=== PATIENT | female | born 1980 ===

== ENCOUNTER 2023-01-05 13:22 | Inpatient (IN) | payer MEDICAID ==
[~2023-01-05] VITALS: Ht 167.6 cm; Wt 86.8 kg
[2023-01-05] VITALS (318 sets, daily range): BP systolic 135; BP diastolic 105; PULSE 102; TEMP 97.9–101.2; O2SAT 91–100
--- NOTE | 2023-01-05 17:43 | NUR ---
REPLACED PT TUBE SHETH WITH ANCHORFAST TUBE SHETH UPON ARRIVAL IT WAS NOTED THAT PATIENT HAD BEEN BITING TOUNGE AND IT WAS BLEEDING. USED BITE BLOCK ON ANCHORFAST TO TRY TO PREVENT FURTHER BITING.
[2023-01-05 18:01] LABS: ARTERIAL BLD GAS O2 SATURATION 98.5 % (92-100); ARTERIAL BLD GAS TCO2 CT 25.6; ARTERIAL BLOOD GAS BASE EXCESS -1.4 (-2-2); ARTERIAL BLOOD GAS HCO3 24.2 meq/L (22-26); ARTERIAL BLOOD GAS PCO2 44.2 mmHg (35-45); ARTERIAL BLOOD GAS pH 7.36 (7.35-7.45)
[2023-01-05 18:02] LABS: ARTERIAL BLOOD GAS PO2 172.4 mmHg (80-100)
[2023-01-05 19:02] LABS: HEMATOCRIT 39.2 % (37.0-47.0); HEMOGLOBIN 13.3 g/dl (12.5-16.0); MEAN CELL VOLUME 90 fl (80.0-100.0); MEAN CORPUSCULAR HEMOGLOBIN 31 pg (27-31); MEAN CORPUSCULAR HGB CONC 34 g/dl (33.0-37.0); MEAN PLATELET VOLUME 9.4 fl (7.4-10.4); PLATELET COUNT 258 K/mm3 (130-400); RED BLOOD COUNT 4.36 M/mm3 (4.10-5.30); REDCELL DISTRIBUTION WIDTH-CV 13.5 % (11.5-14.5)
[2023-01-05 19:05] LABS: TRICYCLIC ANTIDEPRESS URINE NEGATIVE
[2023-01-05 19:11] LABS: PROTHROMBIN TIME 11.7 SECONDS (9.7-12.8)
[2023-01-05 19:12] LABS: ALBUMIN 3.3 gm/dL (3.5-5.0); BILIRUBIN,TOTAL 0.6 mg/dL (0.2-1.2); CREATININE, serum 1.13 mg/dL (0.57-1.11); POTASSIUM 4.7 mmol/L (3.5-4.5); TOTAL PROTEIN 6.7 gm/dL (6.2-8.1)
[2023-01-05 19:14] LABS: PARTIAL THROMBOPLASTIN TIME 27.5 SECONDS (26.0-37.0)
[2023-01-05 19:19] LABS: TROPONIN-I 0.868 ng/mL (0.00-0.033)
[2023-01-05] MEDS ORDERED: MERIBIN5 MG PO (19:25)
[2023-01-05] MEDS ORDERED: CALCIUM 600600 MG PO (19:25)
[2023-01-05] MEDS ORDERED: PRINIVIL40 MG PO (19:26)
[2023-01-05] MEDS ORDERED: INSULIN AS100 UNIT/3 SQ (19:26)
[2023-01-05] MEDS ORDERED: ESTRACE 1MG1 MG/TAB PO (19:27)
[2023-01-05] MEDS ORDERED: PRILOSEC 20MG20 MG PO (19:27)
[2023-01-05] MEDS ORDERED: CRESTOR5 MG PO (19:27)
[2023-01-05] MEDS ORDERED: LEVEMIR FLEX100 U/ML SQ (19:28)
[2023-01-05] MEDS ORDERED: FOLIC ACID0.4 MG PO (19:28)
[2023-01-05] MEDS ORDERED: DELZICOL PO (19:28)
[2023-01-05] MEDS ORDERED: LASIX 40MG TABL40 MG PO (19:29)
[2023-01-05] MEDS ORDERED: MULTI VITAMINS1 TAB PO (19:29)
[2023-01-05] MEDS ORDERED: LYRICA 150MG C150 MG PO (19:29)
[2023-01-05 19:43] LABS: MAGNESIUM 1.8 mg/dL (1.6-2.6); PHOSPHOROUS 3.1 mg/dL (2.3-4.7)
--- NOTE | 2023-01-05 19:45 | NUR ---
REPORT RECEIVED FROM CAMILLA REYES FROM [facility] AT 1617. IN ROUTE EMS CALLED AND STATED PTS GLUCOSE DROPPED NEARLY 200 POINTS IN LESS THAN 40 MINUTES. EMS ADVISED TO HOLD INSULIN DRIP. PT TO UNIT 1715. PT PLACED ON ICU COT AND MONITORING. GLUCOSE CHECKED RESULTS 283. INSULIN STARTED AT 3ML PER ORDER SET. WILL RECHECK HOURLY PER PROTOCOL. VSS. PT ON MECHANICAL VENTILATOR TOLERATING WELL. HOSPITALIST AND SCANNER OPERATOR ADVISED OF ARRIVAL. HEAD TO TOE ASSESSMENT COMPLETED. PT IS CONITNUOUSLY BITING ETT AND FLUTTERING EYES. PTS JAW IS THEN LOCKED. DR. BRIDGES ADVISED AT 1721 TELEPHONE ORDER FOR ATIVAN ONE TIME RECEIVED. PT RELAXED AND STILLED WITH ATIVAN.
[2023-01-05 19:46] LABS: ALBUMIN 3.2 gm/dL (3.5-5.0); BILIRUBIN,TOTAL 0.6 mg/dL (0.2-1.2); TOTAL PROTEIN 6.4 gm/dL (6.2-8.1)
--- NOTE | 2023-01-05 19:50 | NUR ---
1804- TIME OUT FOR CENTRAL LINE PLACEMENT COMPLETED AFTER RECEIVING VERBAL CONSENT FROM DPOA DR. PEARCE PERFORMED BEDSIDE. PROCEDURE TOLERATED WELL. COMPLETED WITHOUT INCIDENT.
--- NOTE | 2023-01-05 19:50 | NUR ---
PT IS CURRENTLY RESTING IN BED. PT DOES NOT RESPOND TO STIMULI. HYPOTHERMIA PROTOCOL STARTED AT 1850. PT SHIFT REPORT GIVEN TO CAMILLA Wadsworth RN.
[2023-01-05 19:59] LABS: TROPONIN-I 1.014 ng/mL (0.00-0.033)
[2023-01-05 20:11] LABS: URINE APPEARANCE Cloudy (CLEAR/HAZY); URINE COLOR Yellow (YELLOW)
[2023-01-05 20:12] LABS: PH 5.5 (5.0-8.5); URINE BLOOD 1+ (NEGATIVE); URINE GLUCOSE 2+ (NEGATIVE); URINE KETONE 2+ (NEGATIVE); URINE NITRATE Negative (NEGATIVE); URINE PROTEIN(semi-quant) 1+ (NEGATIVE); URINE UROBILINOGEN 0.2 E.U/dL (0.2-1.0)
[2023-01-05 20:15] LABS: COLLECTION METHOD CLEAN CATCH
[2023-01-05 20:18] LABS: AMORPHOUS CRYSTAL Present (NOT PRESENT); MUCOUS Present (NOT PRESENT); SQUAMOUS EPITHELIAL 0-2 /hpf (0-10); URINE BACTERIA Rare /hpf (NONE SEEN); URINE RBC 0-2 /hpf (0-2); URINE WBC 0-2 /hpf (0-2)
[2023-01-05 20:18] LABS: BILIRUBIN,DIRECT 0.2 mg/dL (0.0-0.5)
[2023-01-05 21:00] LABS: BAND 23 % (0-10); LYMPHOCYTE 1 % (20.0-51.0); NEUTROPHILS 75 % (42.0-75.2)
[2023-01-05 21:01] LABS: PLATELET ESTIMATE NORMAL (NORMAL)
--- NOTE | 2023-01-05 21:32 | NUR ---
RECEIVED REPORT FROM DAY SHIFT NURSE. PT IS INTUBATED AND SEDATED. PT HAS NO CORNEAL REFLEX. PT'S ARMS AND LEGS ARE ABNORMALLY EXTENDED AND WILL TENSE HER SHOULDERS. PT WILL BITE ON ET TUBE AND EYES WILL ROLL UP EVERY NOW AND THEN. PT WILL NOT RESPOND TO SPEECH. PT IS SINUS TACH AND WAS HAVING HIGH DBP. SPO2 IS HIGH 90'S ON FIO2 OF 30%.
[2023-01-05 22:40] LABS: CALCIUM 7.8 mg/dL (8.4-10.2); CREATININE, serum 1.12 mg/dL (0.57-1.11); POTASSIUM 4.2 mmol/L (3.5-4.5)
--- NOTE | 2023-01-05 22:40 | NUR ---
RR WAS GOING UP AND HR WAS GOING UP WELL. PT WAS BITING ON THE ET TUBE.
--- NOTE | 2023-01-05 22:41 | NUR ---
INCREASED RR AND TEARS ON CORNER OF THE EYES. HR WAS ALSO GOING UP.
--- NOTE | 2023-01-05 22:43 | NUR ---
PT RR WAS IN THE 30'S AND PT WAS BITING ON THE ET TUBE.
--- NOTE | 2023-01-05 22:44 | NUR ---
THE RATE WAS THIS UPON SHIFT CHANGE.
--- NOTE | 2023-01-05 22:45 | NUR ---
THIS IS WHAT THE DRIP RATE WAS AT UPON RECEIVING REPORT.
--- NOTE | 2023-01-05 22:47 | NUR ---
THIS IS WHAT THE DRIP RATE WAS AT UPON RECEIVING REPORT.
[2023-01-06] VITALS (1112 sets, daily range): BP systolic 119–149; BP diastolic 82–98; PULSE 84–92; TEMP 35.3–35.7; O2SAT 84–100
[2023-01-06 00:45] LABS: ARTERIAL BLD GAS O2 SATURATION 96.9 % (92-100); ARTERIAL BLD GAS TCO2 CT 19.6; ARTERIAL BLOOD GAS BASE EXCESS -7.8 (-2-2); ARTERIAL BLOOD GAS HCO3 18.4 meq/L (22-26); ARTERIAL BLOOD GAS PCO2 39.9 mmHg (35-45); ARTERIAL BLOOD GAS PO2 105.9 mmHg (80-100); ARTERIAL BLOOD GAS pH 7.28 (7.35-7.45)
[2023-01-06 01:34] LABS: CALCIUM 7.8 mg/dL (8.4-10.2); CREATININE, serum 1.15 mg/dL (0.57-1.11); POTASSIUM 4.3 mmol/L (3.5-4.5)
[2023-01-06 02:50] LABS: TRICYCLIC ANTIDEPRESS URINE NEGATIVE
[2023-01-06 03:55] LABS: CALCIUM 7.7 mg/dL (8.4-10.2); CREATININE, serum 1.18 mg/dL (0.57-1.11); POTASSIUM 4.2 mmol/L (3.5-4.5)
--- NOTE | 2023-01-06 04:49 | NUR ---
PT'S RR WENT INTO THE 30'S AND WAS POSTURING WITH WORSENING ABNORMAL EXTENSION.
--- NOTE | 2023-01-06 04:51 | NUR ---
INCREASE RR AND WORSENING ABNORMAL EXTENSION AND POSTURING WITH ORAL CARE.
[2023-01-06 05:41] LABS: BASO # 0.1 K/mm3 (0.0-0.2); BASO % 0.3 % (0.0-2.0); EOS % 0.1 % (0.0-4.0); HEMATOCRIT 39.3 % (37.0-47.0); LYMPH # 1.8 K/mm3 (1.2-3.4); LYMPH % 7.6 % (20.0-51.0); MEAN CELL VOLUME 92 fl (80.0-100.0); MEAN CORPUSCULAR HEMOGLOBIN 31 pg (27-31); MEAN CORPUSCULAR HGB CONC 33 g/dl (33.0-37.0); MEAN PLATELET VOLUME 9.2 fl (7.4-10.4); MONO # 1.2 K/mm3 (0.1-0.6); MONO % 5.3 % (1.7-9.3); PLATELET COUNT 217 K/mm3 (130-400); RED BLOOD COUNT 4.26 M/mm3 (4.10-5.30); REDCELL DISTRIBUTION WIDTH-CV 13.8 % (11.5-14.5)
[2023-01-06 06:06] LABS: ARTERIAL BLD GAS O2 SATURATION 40.7 % (92-100); ARTERIAL BLD GAS TCO2 CT 22.6; ARTERIAL BLOOD GAS BASE EXCESS -7.7 (-2-2); ARTERIAL BLOOD GAS HCO3 20.9 meq/L (22-26); ARTERIAL BLOOD GAS PCO2 55.4 mmHg (35-45)
[2023-01-06 06:07] LABS: CALCIUM 7.9 mg/dL (8.4-10.2); CREATININE, serum 1.16 mg/dL (0.57-1.11); MAGNESIUM 1.8 mg/dL (1.6-2.6); PHOSPHOROUS 2.8 mg/dL (2.3-4.7); POTASSIUM 4.1 mmol/L (3.5-4.5)
[2023-01-06 06:12] LABS: ARTERIAL BLOOD GAS PO2 27.1 mmHg (80-100); ARTERIAL BLOOD GAS pH 7.19 (7.35-7.45)
--- NOTE | 2023-01-06 06:15 | NUR ---
CALLED [facility] VENT SETTINGS CHANGED PER ABG RESULTS. VT TO 480 RR TO 26. ABG TO BE DRAWN IN AN HOUR
[2023-01-06 06:21] LABS: TROPONIN-I 1.01 ng/mL (0.00-0.033)
--- NOTE | 2023-01-06 06:45 | NUR ---
DID NOT DO SEDATION VACATION SINCE PT HAS NOT BEEN INTUBATED FOR MORE THAN 24 HOURS.
--- NOTE | 2023-01-06 07:35 | NUR ---
PT THROUGHOUT THE NIGHT HAD A COUPLE OF EPISODES OF WORSENING ABNORMAL EXTENSION. GAVE ATIVAN PER ORDERS AND THAT HELP THE PT RELAX MORE. PT'S TEMP HAS BEEN SLOWLY GOING DOWN BUT WENT BACK UP TO 96.9 F WHEN PT STARTED TO DO ABNORMAL EXTENSION WITH ORAL CARE. PT GONE DOWN TO 94.2 F AT 0700. PT'S PULSES ARE WEAK. PT HAD INCREASE SWELLING OF THE EYES AND SCLERA. PT DOES NOT OPEN EYES UPON SPEECH BUT UPON STERNAL RUB AND HAD ABNORMAL EXTENSION OF THE LIMBS. PT STARTED TO SHIVER AND GAVE VEC WITH SEDATION ON BOARD PER EMAR. TOF WAS 5 WITH 3/4 TWITCHES BEFORE VEC WAS GIVEN AND WAS A 9 AFTER WITH 2/[address] PT HAS BEEN ST TO SR THROUGHOUT THE NIGHT. PT WAS REPOSITIONED FREQUENTLY.
[2023-01-06 07:58] LABS: CALCIUM 7.8 mg/dL (8.4-10.2); CREATININE, serum 1.14 mg/dL (0.57-1.11); POTASSIUM 3.6 mmol/L (3.5-4.5)
[2023-01-06 09:12] LABS: ARTERIAL BLD GAS O2 SATURATION 96.7 % (92-100); ARTERIAL BLOOD GAS HCO3 19.9 meq/L (22-26); ARTERIAL BLOOD GAS PCO2 36.5 mmHg (35-45); ARTERIAL BLOOD GAS PO2 93.9 mmHg (80-100); ARTERIAL BLOOD GAS pH 7.35 (7.35-7.45)
--- NOTE | 2023-01-06 10:45 | NUR ---
SEFERINON notified, referral # [id number].
[2023-01-06 13:20] LABS: CALCIUM 7.6 mg/dL (8.4-10.2); CREATININE, serum 1.12 mg/dL (0.57-1.11); POTASSIUM 4.2 mmol/L (3.5-4.5)
[2023-01-06 15:01] LABS: ALBUMIN 2.7 gm/dL (3.5-5.0); BILIRUBIN,TOTAL 0.9 mg/dL (0.2-1.2); MAGNESIUM 1.6 mg/dL (1.6-2.6); TOTAL PROTEIN 5.8 gm/dL (6.2-8.1)
[2023-01-06 15:24] LABS: BILIRUBIN,DIRECT 0.4 mg/dL (0.0-0.5)
--- NOTE | 2023-01-06 15:46 | NUR ---
PT FAMILY BEDSIDE AND UPDATED ON PLAN OF CARE.
--- NOTE | 2023-01-06 16:35 | NUR ---
bone worker met with patient's mother, Jodi Peralta, who is patient's durable power of claim attorney for health care. Worker copied the directive and placed on the chart. Patient resides with her 16 year old son in [place]. Mother states she is caring for her grandson and patient's animals. Worker offered emotional support and arranged for hospital library technician to say a prayer with patient. Jodi states that patient has a library technician and they are aware that patient is in the hospital. Patient is non responsive at this time.
[2023-01-06 19:33] LABS: CALCIUM 7.8 mg/dL (8.4-10.2); CREATININE, serum 1.18 mg/dL (0.57-1.11); POTASSIUM 3.6 mmol/L (3.5-4.5)
--- NOTE | 2023-01-06 22:14 | NUR ---
RECEIVED REPORT FROM DAY SHIFT NURSE. PT'S VITALS ARE STABLE AT THIS TIME. PT IS SEDATED AND ON THE VENT.
--- NOTE | 2023-01-06 23:21 | NUR ---
THE DRIP RATE AT SHIFT REPORT.
--- NOTE | 2023-01-06 23:24 | NUR ---
DRIP RATE AT THE TIME OF SHIFT REPORT.
--- NOTE | 2023-01-06 23:25 | NUR ---
DRIP RATE AT SHIFT REPORT/CHANGE.
--- NOTE | 2023-01-06 23:26 | NUR ---
PT MADE GOAL TEMP AT 2100. TURNED OF THE WARMING BLANKETS AT 2230 TO SEE HOW WELL THE PT CAN MAINTAIN THEIR TEMP. BEFORE GOING TO GET A HEAD CT DONE. AT 2327 PT'S MARTINES TEMP. IS 37.0 C AND RECTAL IS 99.0 F. WILL CONTINUE TO MONITOR.
--- NOTE | 2023-01-06 23:28 | NUR ---
UPON 1999 ASSESSMENT PT IS COOL TO TOUCH WITH PINK COLOR TO THE FACE. PT HAS GREEN/QUINTERO COLOR STUFF COMING OUT OF HER NOSE. PT HAS FIXED PUPILS AND NO CORNEAL REFLEX WITH COTTON TOUCHING THE EYE. PT OPENS EYES UPON STERNAL RUB AND ORAL CARE. PT'S LIMBS ARE STIFF BUT LESS STIFF THAN THE NIGHT BEFORE. PULSES ARE PRESENT WITH CAP. REFILL GREATER THAN 3 SECONDS. LUNG SOUNDS COARSE. SUCTIONED ET TUBE AND MOUTH. PT HAS ABNORMAL EXTENSION OF THE LIMBS WITH ORAL CARE. PT DOES NOT HAVE A LOT OF REACTION WITH PAIN.
[2023-01-07] VITALS (1391 sets, daily range): BP systolic 143–162; BP diastolic 92–106; PULSE 82–105; TEMP 99–101.5; O2SAT 76–100
[2023-01-07 00:45] LABS: ARTERIAL BLD GAS O2 SATURATION 96.8 % (92-100); ARTERIAL BLD GAS TCO2 CT 19.8; ARTERIAL BLOOD GAS BASE EXCESS -6.1 (-2-2); ARTERIAL BLOOD GAS HCO3 18.7 meq/L (22-26); ARTERIAL BLOOD GAS PCO2 34.9 mmHg (35-45); ARTERIAL BLOOD GAS PO2 90.2 mmHg (80-100); ARTERIAL BLOOD GAS pH 7.35 (7.35-7.45)
[2023-01-07 01:13] LABS: CALCIUM 7.7 mg/dL (8.4-10.2); CREATININE, serum 1.02 mg/dL (0.57-1.11); POTASSIUM 4.3 mmol/L (3.5-4.5)
[2023-01-07 05:12] LABS: ARTERIAL BLD GAS TCO2 CT 18.6; ARTERIAL BLOOD GAS BASE EXCESS -6.4 (-2-2); ARTERIAL BLOOD GAS HCO3 17.6 meq/L (22-26); ARTERIAL BLOOD GAS PCO2 30.6 mmHg (35-45); ARTERIAL BLOOD GAS PO2 91.6 mmHg (80-100); ARTERIAL BLOOD GAS pH 7.38 (7.35-7.45)
[2023-01-07 05:47] LABS: BASO % 0.2 % (0.0-2.0); EOS % 0.1 % (0.0-4.0); GRAN # 15.2 K/mm3 (1.4-6.5); GRAN % 84.5 % (42.2-75.2); HEMOGLOBIN 11.5 g/dl (12.5-16.0); LYMPH # 1.9 K/mm3 (1.2-3.4); LYMPH % 10.3 % (20.0-51.0); MEAN CELL VOLUME 94 fl (80.0-100.0); MEAN CORPUSCULAR HEMOGLOBIN 30 pg (27-31); MEAN CORPUSCULAR HGB CONC 32 g/dl (33.0-37.0); MEAN PLATELET VOLUME 9.6 fl (7.4-10.4); MONO # 0.8 K/mm3 (0.1-0.6); MONO % 4.3 % (1.7-9.3); PLATELET COUNT 188 K/mm3 (130-400); RED BLOOD COUNT 3.82 M/mm3 (4.10-5.30); REDCELL DISTRIBUTION WIDTH-CV 14.3 % (11.5-14.5)
[2023-01-07 05:57] LABS: HEMATOCRIT 35.9 % (37.0-47.0)
[2023-01-07 06:05] LABS: CALCIUM 7.6 mg/dL (8.4-10.2); CREATININE, serum 1.1 mg/dL (0.57-1.11); MAGNESIUM 1.5 mg/dL (1.6-2.6); PHOSPHOROUS 2.4 mg/dL (2.3-4.7); POTASSIUM 4.5 mmol/L (3.5-4.5)
[2023-01-07 07:36] LABS: CALCIUM 7.6 mg/dL (8.4-10.2); CREATININE, serum 1.05 mg/dL (0.57-1.11); POTASSIUM 4.2 mmol/L (3.5-4.5)
--- NOTE | 2023-01-07 07:42 | NUR ---
SEDATION VACTION WAS NOT DONE DUE TO PT BEING AGITATED WITH STIMULATION AND PT BREATHING OVER THE VENT.
--- NOTE | 2023-01-07 07:53 | NUR ---
PT OPENS EYES TO PAINFUL STIMULI AND WILL HAVE ABNORMAL EXTENSION OF THE LIMBS WITH INTENSE ORAL CARE OR WHEN PUT FLAT. PT WILL HAVE LIQUIDS COME OUT OF THE NOSE AT TIMES WHEN THE PT IS TENSING AND COUGHING ON VENT. PT HAD NO CORNEAL REACTION WHEN COTTON BALL IS TOUCHING THE EYE. PT HAS SLOW/NONREACTIVE PUPILS. PT HAS GENERAL EDEMA THROUGHOUT THE BODY WELL THE FACE, EYES, AND SCLERAL. PT HAS BEEN OFF THE THE WARMING BLANKET SINCE 2229 AND HAS BEEN ABLE TO KEEP THE TEMP ABOVE 98.6 F. THE TEMP HAS BEEN GOING UP SLOWLY AND AT ONE POINT AT 38.4 C WHICH IS 101.1 F. CALLED HOSPITALIST AND FRANCY ABOUT IT AND RECEIVED NO ORDERS AT THE TIME. TURNED THE FAN ON IN THE ROOM AND THE TEMP IS NOW 38.1 C WHICH IS 100.6 F VIA MARTINES. PT DOES NOT FOLLOW COMMANDS OR SQUEEZE THE HANDS. CAP REFILL IS STILL GREATER THAN 3 SECONDS. LUNGS ARE COARSE. PT'S VITAL SIGNS WERE STABLE UPON SHIFT REPORT. GAVE SHIFT REPORT TO DAY SHIFT NURSE, MELLISA Bustillo
--- NOTE | 2023-01-07 08:00 | NUR ---
VERBAL ORDER TO RENEW NONVIOLENT RESTRAINT ORDER RECEIVED FROM DR. Chiara PEARCE.
--- NOTE | 2023-01-07 08:08 | NUR ---
TITRATING DOWN SLOWLY TO SEE WHAT NEUROLOGICAL RESPONSE WOULD BE WITH LESS SEDATION.
--- NOTE | 2023-01-07 08:17 | NUR ---
CALLED FRANCY AT 0640. TALK TO THE NURSE SINCE THE DOCTOR WAS ON ANOTHER CALL. PT IS POST CODE, DKA AND ON THE VENT. PT WENT THROUGH HYPOTHERMIA PROTOCOL AND HAS BEEN REWARMED AND DOES NOT HAVE THE WARMING BLANKET ON ANYMORE AND THE PT'S TEMP HAS BEEN SLOWLY GOING UP AND IS AT 38.4 C WHICH IS 101.1 F AND HAS A SHEET ON HER LEGS AND THAT IS IT. IS THERE ANYTHING I SHOULD DO? THEY RESPONDED "WE WILL CALL YOU BACK IF THE DOCTOR ORDERS ANYTHING OR WANTS TO DO ANYTHING." IT IS 0821 AND HAD NO CALL BACK. LET DAY SHIFT NURSE KNOW.
--- NOTE | 2023-01-07 10:12 | NUR ---
Several visit attempts; Instant Print Operator let Certified Endoscopy Technician know that family's human resources mgr had been in to offer prayer and comfort for Rachna. Certified Endoscopy Technician pleased to know Rachna is being cared for.
--- NOTE | 2023-01-07 10:35 | NUR ---
BEDSIDE REPORT RECEIVED FROM ERIC SAMPSON. PT ON VENTILATOR, 8.0 ET MEASURING 22 AT TEETH, TV 450, PEEP 5, FIO2 30%, RATE 22. NG TUBE MEASURING 60CM IN PLACE TO L NARE, CONNECTED TO LIS. RSC TRIPLE LUMEN WNL, DRESSING CDI. DRIPS INFUSING ORDERED, SEE FLOWSHEET/MAR. PT ALSO HAS PERIPHERAL IVS TO L FOREARM, R FOREARM, R HAND, ALL WNL. MARTINES CATHETER IN PLACE TO DEPENDENT DRAINAGE. PT REPOSITIONED Q2HR TO PREVENT SKIN BREAKDOWN.
--- NOTE | 2023-01-07 13:55 | NUR ---
RN REQUESTED THAT RT NOT ENTER ROOM AT THIS TIME. FAMILY MEMBERS PRESENT WITH FIELD SALES MANAGER.
--- NOTE | 2023-01-07 14:15 | NUR ---
FAMILY MEETING COMPLETED AT THIS TIME. MOTHER/DPOA & HER S.O. PRESENT. SEE PALLIATIVE CARE NOTE FOR MORE DETAILS. PATIENT WILL STAY ON VENTILATOR THROUGH THE WEEKEND & FAMILY WILL BE IN TO VISIT. MOTHER DOES NOT PLAN TO PROCEED WITH TRACH & PEG AT THIS TIME. LIKELY WITHDRAW OF VENTILATOR EARLY NEXT WEEK.
--- NOTE | 2023-01-07 14:30 | NUR ---
Updated provided to MTN. Mother/DPOA brought up organ donation in family meeting. MD discussed that [facility] would notified. This RN explained that [facility] had already been notified due to patient meeting clinical criteria. MTN provided with update & plan to withdraw ventilator early next week. [facility] will keep in contact.
--- NOTE | 2023-01-07 16:32 | NUR ---
Family meeting held with patients mother and mothers boyfriend. Also in attendance is the MD, ICU keymodule assembly supervisor Tiffanie, patient RN, this sw, rebecca Parnell. Patients condition discussed at length by MD. Patients mother verbalizes her understanding and states that she has had these discussions in the past with the patient and that she "wouldn't want to be a vegetable". Jodi is encouraged to invite family into town to see the patient. Plan is to withdraw care on Tuesday pending families arrival, if not on Tuesday. Jodi verbalizes that she does not want to trach and peg the patient. Jodi verbalizes grave concerns over her grandchildrens mental health stating that the patients 16 yr old son, Spike has a strong history of anxiety, depression and cutting. He is currently established with a therapist that comes to the home on Mondays and Wednesdays and is on medications. Encouraged Jodi to reach out to his therapist to notify her of what is going on. Jodi also verbalizes that she strongly thinks the child will attempt SI. CPS report filed: [id number]. Jodi also verbalizes over the patients 20 yr old son Armando and that he has made the comment" i don't want to live if mom isn't alive". Per Jodi, Armando is not seeking MH assistance. APS report filed: [id number]
--- NOTE | 2023-01-07 17:27 | NUR ---
SEDATION VACATION NOT DONE AT THIS TIME PER DR Poonam PEARCE.
--- NOTE | 2023-01-07 18:50 | NUR ---
NEURO CHECKS DONE EVERY 2 HR THROUGHOUT SHIFT. PT DOES NOT RESPOND TO VERBAL COMMANDS OR PAINFUL STIMULI BUT DOES GRIMACE AND SLIGHTLY GAG WITH ET SUCTIONING. LIMBS ARE RELAXED AND NOT SHOWING ABNORMAL FLEXION AT THIS TIME. NO BABINSKI REFLEX NOTED. PUPILS ARE EQUAL, 2MM, VERY SLUGGISH TO REACT TO LIGHT.
--- NOTE | 2023-01-07 20:00 | NUR ---
SHIFT REPORT RECEIVED. PT INTUBATED AND SEDATED AND APPEARS COMFORTABLE AT THIS TIME. PT PUPILS NON REACTIVE TO LIGHT, NO CORNEAL REFLEX B/L, POSITIVE DOLL'S EYE, DOES NOT RESPOND TO PAIN STIMULI, DOES GAG AND GRIMACE WITH DEEP SUCTIONING. LUNG SOUNDS CLEAR ALL LOBES WITH SLIGHT DIMINISHED SOUNDS BASES B/L. PT FEBRILE VIA TEMP MARTINES, FAN TURNED ON AND ICE PACKS PLACED AT B\L AXILLARY AND CHEST UNTIL NEXT DOSE OF TYLENOL CAN BE GIVEN. PT WITH CONTINUOUS TUBE FEED RUNNING VIA NG TUBE. PT WITH SCLERA EDEMA, +2 GENERALIZED EDEMA BUE AND SMALL LACERATION TO TONGUE. PT WITH HYPOACTIVE BOWEL SOUNDS. PT IN SEIZURE PERCAUTIONS.
--- NOTE | 2023-01-07 20:38 | NUR ---
PT IS RESTING COMFORTABLY IN BED AT THIS TIME. NO DISTRESS NOTED. RAILS UP X4. HOB ELEVATED AT LEAST 30 DEGREES. VENT WHEELS LOCKED AND PLUGGED INTO RED OUTLETS. SUCTION WITHIN APPROPRIATE RANGE. ORAL CARE PROVIDED WITH APPROVED HOSPITAL PROVIDED ORAL CARE KIT. NO COMPLICATIONS OR CONCERNS. AMBU BAG AT HEAD OF BED ON FLOW METER. ALL VENT TUBING AND SUCTION TUBING OUT OF REACH. RESTRAINTS ARE SECURE. NO VOICED COMPLAINTS OR CONCERNS. NO GAG REFLEX NOTED, BUT MINOR CLENCHING OF JAW WAS NOTED DURING ORAL CARE.
--- NOTE | 2023-01-07 23:36 | NUR ---
AFTER PREVIOUS CHECK RECEIVED CALL FROM NURSING REGARDING PT DESATURATION. PT HAD BEEN ON 30% WITH SATS IN THE MID TO LATE 90S. AFTER ET TUBE SUCTIONING, ORAL CARE, AND SUBGLOTTIC SUCTIONING PT REQUIRED TIME TO RECOVER. RN INCREASED O2 TO 50 %. DURING 2249 VENT CHECK BEGAN TO SLOWLY WEAN PT O2 BACK DOWN. CURRENTLY ON 40%. STATED TO RN THAT IF SATS PERMITTED AND SHE WAS STILL DOING GOOD WE WOULD TURN HER O2 DOWN MORE ON NEXT VENTILATOR CHECK. RN VERBALIZED UNDERSTANDING.
[2023-01-08] VITALS (1438 sets, daily range): BP systolic 128–185; BP diastolic 80–111; PULSE 73–91; TEMP 98.1–100.9; O2SAT 76–100
--- NOTE | 2023-01-08 04:47 | NUR ---
SPOKE WITH LESTER REYES CARING FOR PT TO CLARIFY ARTERIAL BLOOD GAS ORDERS. RN CALLED DIANNE HOPE TO CLARIFY ORDERS. RN REPORTED THAT DIANNE SAID NO NEED TO GET ABG IN MORNING. THIS TEACHERS' AIDE VERBALIZED UNDERSTANDING.
--- NOTE | 2023-01-08 05:04 | NUR ---
SEDATION VACATION NOT DONE PER HOSPITALIST.
[2023-01-08 05:55] LABS: BASO % 0.2 % (0.0-2.0); EOS # 0.1 K/mm3 (0.0-0.7); EOS % 0.5 % (0.0-4.0); GRAN # 8.7 K/mm3 (1.4-6.5); GRAN % 78.4 % (42.2-75.2); HEMOGLOBIN 10.7 g/dl (12.5-16.0); LYMPH # 1.8 K/mm3 (1.2-3.4); LYMPH % 16.2 % (20.0-51.0); MEAN CELL VOLUME 93 fl (80.0-100.0); MEAN CORPUSCULAR HEMOGLOBIN 30 pg (27-31); MEAN CORPUSCULAR HGB CONC 32 g/dl (33.0-37.0); MEAN PLATELET VOLUME 9.9 fl (7.4-10.4); MONO # 0.4 K/mm3 (0.1-0.6); MONO % 3.9 % (1.7-9.3); PLATELET COUNT 173 K/mm3 (130-400); RED BLOOD COUNT 3.54 M/mm3 (4.10-5.30); REDCELL DISTRIBUTION WIDTH-CV 14.7 % (11.5-14.5)
[2023-01-08 06:27] LABS: CALCIUM 8.4 mg/dL (8.4-10.2); CREATININE, serum 0.86 mg/dL (0.57-1.11); MAGNESIUM 2.4 mg/dL (1.6-2.6)
--- NOTE | 2023-01-08 07:00 | NUR ---
Report received from ERIC Whitlock; patient currently sedated and still on ventilator with fentanyl and propofol running through her right subclavian central line. No meds or fluids are running through her peripheral lines. Patient remains on tube feeds through her NG, and temp Carmichael catheter is in place. Patient's vital signs are within normal limits this morning.
--- NOTE | 2023-01-08 09:30 | NUR ---
PER DR. Chiara PEARCE SEDATION TITRATED DOWN OUTSIDE THE PARAMETERS OF PROTOCOL.
--- NOTE | 2023-01-08 10:07 | NUR ---
ETT PULLED BACK TO 25 CM @ TEETH PER .
--- NOTE | 2023-01-08 16:15 | NUR ---
Increased sedation outside parameters of protocol as per Dr. Chiara Mcdermott.
--- NOTE | 2023-01-08 17:00 | NUR ---
Sedation was significantly lowered this morning and remained so throughout the day; patient was unresponsive and the only reflex elicited was the cough/gag reflex when patient was suctioned through her ET tube.
--- NOTE | 2023-01-08 20:00 | NUR ---
SHIFT REPORT RECEIVED. PT INTUBATED AND SEDATED, NOT FOLLOWING COMMANDS AND DOES NOT RESPOND TO PAINFUL STIMULI. NO CORNEAL REFLEXS B/L, POSITIVE DOLL'S EYES, +2 PATELLA REFLEXS B/L. LUNG SOUNDS CLEAR WITH B/L BASES DIMINISHED. PT WITH LARGE AMOUNTS OF THIN CLEAR DROOL COMING FROM MOUTH DESPITE CONSISTANT SUCTIONING, BARRIER OINTMENT APPLIED TO CHIN AND NECK TO PROTECT SKIN FROM MOISTURE AND SMALL HAND BULMARO PLACED TO HELP PROTECT SKIN. PT ON TUBE FEEDS VIA NG TUBE. TONGUE HAS SMALL LACERATION. LT LOWER ABD HAS A 5CM x 3CM BRUISE. PT WITH SCLERA EDEMA INCREASED FROM PREVIOUS SHIFT, WORSE IN LT EYE, OINTMENTS BEING APPLIED Q3HR AND PRN. +2 EDEMA BUE, 1+ EDEMA BLE. PT PT WITH OVERALL GENERALIZED EDEMATOUS APPEARANCE. PT IN SEIZURE PERCAUTIONS AND BED ALARMS ON.
--- NOTE | 2023-01-08 20:15 | NUR ---
PT'S MOTHER CALLED FOR PT UPDATE. INFORMED HER THAT THERE HAS BEEN NO CHANGES SINCE LAST UPDATE FROM DAY SHIFT. LET MOTHER KNOW THAT I WAS PREFORMING A BED BATH, DETANGLED PT'S HAIR AND PLACED IN DEVON TO PREVENT FURTHER MATTING, APPLIED THERAPUTIC LOTION MASSAGE ON EXTREMITIES AND WAS PLAYING PT'S FAVORITE MUSIC. ALL QUESTIONS ANSWERED. MOTHER REPORTS THAT PT'S TWO SONS AND HERSELF WILL BE COMING TO VISIT TOMORROW. REASSURED PT'S MOTHER THAT SHE WILL BE CONTACTED IF THERE ARE ANY CHANGES WITH PT.
--- NOTE | 2023-01-08 22:56 | NUR ---
CHANGED TO HME FROM [facility]
[2023-01-09] VITALS (1365 sets, daily range): BP systolic 141–187; BP diastolic 93–99; PULSE 71–103; TEMP 98.2–100.9; O2SAT 91–100
--- NOTE | 2023-01-09 02:44 | NUR ---
PT WITH 2MM PUPILS B/L, WITH SLIGHT SLUGGISH RESPONSE TO LIGHT IN RT PUPIL. NEGATIVE CORNEAL REFLEXS B/L. NO RESPONSE TO METAL LEYLA TEST B/L FEET OR OTHER PAINFUL STIMULI. POSITIVE BABINSKI REFLEX RT FOOT AND NEGATIVE BABINSKI REFLEX LT FOOT. PATELLA TENDON REFLEX +2 B/L. PT PREFORMING RHYTHMIC BLINKING B/L EYES FOR APPROXIMATELY 5MIN. BLINKING PATTERN DID NOT CHANGE DURING PAINFUL STIMULI OR TO VOICE.
--- NOTE | 2023-01-09 03:00 | NUR ---
PROPOFOL DECREASED TO SEE IF A CHANGE IN NEURO RESPONSES COULD BE OBTAINED.
--- NOTE | 2023-01-09 03:10 | NUR ---
PT BEGAN BREATHING OVER VENT IRREGULARLY AND HAD INCREASE IN RESP. PROPOFOL INCREASED TO PREVIOUS TITRATION OF 30MCG/KG/MIN - 16.4ML/HR.
--- NOTE | 2023-01-09 04:16 | NUR ---
called to verify order, holding on schedule AM ABG.
--- NOTE | 2023-01-09 05:03 | NUR ---
SEDATION VACATION NOT PREFORMED. EARLIER IN SHIFT PT BECAME TACHYPENIC WITH IRREGULAR BREATHS AND BREATHING OVER VENT AFTER AN ATTEMPT IN REDUCING PROPOFOLFROM 30MCG/KG/MIN TO 15MCG/KG/MIN,
[2023-01-09 05:26] LABS: BASO % 0.2 % (0.0-2.0); EOS % 0.3 % (0.0-4.0); GRAN # 7.5 K/mm3 (1.4-6.5); GRAN % 78.4 % (42.2-75.2); HEMOGLOBIN 11.3 g/dl (12.5-16.0); LYMPH # 1.4 K/mm3 (1.2-3.4); LYMPH % 14.4 % (20.0-51.0); MEAN CELL VOLUME 93 fl (80.0-100.0); MEAN CORPUSCULAR HEMOGLOBIN 31 pg (27-31); MEAN CORPUSCULAR HGB CONC 33 g/dl (33.0-37.0); MEAN PLATELET VOLUME 9.6 fl (7.4-10.4); MONO # 0.6 K/mm3 (0.1-0.6); MONO % 5.9 % (1.7-9.3); PLATELET COUNT 202 K/mm3 (130-400); RED BLOOD COUNT 3.71 M/mm3 (4.10-5.30); REDCELL DISTRIBUTION WIDTH-CV 14.9 % (11.5-14.5)
[2023-01-09 05:29] LABS: HEMATOCRIT 34.6 % (37.0-47.0)
[2023-01-09 05:40] LABS: CALCIUM 9.6 mg/dL (8.4-10.2); CREATININE, serum 0.81 mg/dL (0.57-1.11); MAGNESIUM 2.3 mg/dL (1.6-2.6); POTASSIUM 4.3 mmol/L (3.5-4.5)
[2023-01-09 07:33] LABS: ARTERIAL BLD GAS O2 SATURATION 95.5 % (92-100); ARTERIAL BLOOD GAS HCO3 25.3 meq/L (22-26); ARTERIAL BLOOD GAS PCO2 35.5 mmHg (35-45); ARTERIAL BLOOD GAS PO2 78.2 mmHg (80-100); ARTERIAL BLOOD GAS pH 7.47 (7.35-7.45)
[2023-01-09 07:34] LABS: ARTERIAL BLD GAS TCO2 CT 26.4
--- NOTE | 2023-01-09 08:15 | NUR ---
PT ASSESSED AT THIS TIME. PT REMAINS NON-RESPONSIVE TO PAINFUL STIMULI AND HAS AN ABSENT CORNEAL REFLEX. PUPILS REACTIVE TO LIGHT BUT SLUGGISH. BILATERAL SOFT WRIST RESTRAINTS REMAIN IN PLACE. MARTINES CATHETER TO DEPENDENT DRAINAGE. 8.0 ETT 25CM AT TEETH. OG TUBE 60CM AT TEETH WITH PIVOT 1.5 INFUSING. RIGHT SUBCLAVIAN TLC IN PLACE; CLEAN, DRY, AND INTACT; FLUSHES WELL AND RETURNS BLOOD.
--- NOTE | 2023-01-09 09:31 | NUR ---
RECEIVED PHONE CALL FROM HARLEEN WITH [facility]. UPDATE ON PT'S CONDITION GIVEN TO HARLEEN. HARLEEN STATES SOMEONE FROM [facility] WILL BE HERE THIS AFTERNOON TO ASSESS PT AND ANSWER QUESTIONS FOR THE FAMILY.
--- NOTE | 2023-01-09 13:24 | NUR ---
Assembler Gold Frame rounds: Two nurses were in room with Patient. Assembler Gold Frame prayed for Patient from outside of the room.
--- NOTE | 2023-01-09 13:59 | NUR ---
PT'S MOTHER, ELIZABETH AT THE BEDSIDE. ELIZABETH GIVEN UPDATE ON PT'S CONDITION BY THIS NURSE. LET HER KNOW THAT THERE HAVE NOT BEEN ANY MAJOR CHANGES IN PT'S CONDITION SO FAR THIS SHIFT. ELIZABETH REQUESTS UPDATE FROM PHYSICIAN WELL; DR. Poonam PEARCE NOTIFIED OF REQUEST AND WILL BE DOWN TO SPEAK WITH ELIZABETH SHORTLY. ELIZABETH ALSO HAS QUESTIONS REGUARDING THE ORGAN DONATION PROCESS; LET HER KNOW THAT A STAFF MEMBER FROM [facility] WILL BE HERE SOMETIME THIS AFTERNOON TO ANSWER ANY QUESTIONS SHE HAS.
--- NOTE | 2023-01-09 16:50 | NUR ---
[facility] MEMBERS DIANNE AND FRANDY HERE TO SPEAK WITH PT'S DAUGHTER AND 2 SONS REGARDING ORGAN DONATION. FAMILY HAS DECDIED TO MOVE FORWARD WITH ORGAN DONATION. DIANNE IS WITH FAMILY AND ANSWERING ALL QUESTIONS. THIS NURSE WORKING WITH FRANDY REGARDING PT'S MEDICAL RECORDS AND LABS. THIS NURSE ALSO SPOKE WITH DR. Poonam PEARCE AT THIS TIME. DR. PEARCE ALSO WORKING WITH TEAM FOR LABS AND MEDICATIONS NEEDED. ARTERIAL LINE NEEDED; ANESTHESIA AWARE. CARRIAGE SETTER AND OR STAFF AWARE OF DONATION BEING PLANNED FOR TOMORROW.
--- NOTE | 2023-01-09 18:30 | NUR ---
ARTERIAL LINE SUCCESSFULLY PLACED BY CAMILO WILLIAM. 1X ATTEMPT TO LEFT RADIAL. 2X ATTEMPTS TO RIGHT RADIAL. TRANSDUCER LEVELED AND ZERO'D. CUFF PRESSURE CORRELATES WITH ARTERIAL LINE.
[2023-01-09 21:53] LABS: BASO % 0.4 % (0.0-2.0); EOS % 0.4 % (0.0-4.0); GRAN % 72.2 % (42.2-75.2); HEMOGLOBIN 10.7 g/dl (12.5-16.0); LYMPH # 1.6 K/mm3 (1.2-3.4); LYMPH % 18.7 % (20.0-51.0); MEAN CELL VOLUME 95 fl (80.0-100.0); MEAN CORPUSCULAR HEMOGLOBIN 30 pg (27-31); MEAN CORPUSCULAR HGB CONC 32 g/dl (33.0-37.0); MEAN PLATELET VOLUME 9.5 fl (7.4-10.4); MONO # 0.6 K/mm3 (0.1-0.6); MONO % 7.2 % (1.7-9.3); PLATELET COUNT 230 K/mm3 (130-400); RED BLOOD COUNT 3.57 M/mm3 (4.10-5.30); REDCELL DISTRIBUTION WIDTH-CV 15.1 % (11.5-14.5)
[2023-01-09 21:54] LABS: HEMATOCRIT 33.8 % (37.0-47.0)
[2023-01-09 21:56] LABS: ARTERIAL BLD GAS O2 SATURATION 99.2 % (92-100); ARTERIAL BLD GAS TCO2 CT 24.1; ARTERIAL BLOOD GAS BASE EXCESS -0.9 (-2-2); ARTERIAL BLOOD GAS pH 7.42 (7.35-7.45)
[2023-01-09 21:58] LABS: ARTERIAL BLOOD GAS PO2 283.9 mmHg (80-100)
[2023-01-09 22:12] LABS: PARTIAL THROMBOPLASTIN TIME 30.3 SECONDS (26.0-37.0)
[2023-01-09 22:16] LABS: ALBUMIN 2.1 gm/dL (3.5-5.0); BILIRUBIN,TOTAL 0.5 mg/dL (0.2-1.2); CALCIUM 9.5 mg/dL (8.4-10.2); PHOSPHOROUS 5.3 mg/dL (2.3-4.7); POTASSIUM 3.9 mmol/L (3.5-4.5); TOTAL PROTEIN 6.4 gm/dL (6.2-8.1)
[2023-01-09 22:33] LABS: BILIRUBIN,DIRECT 0.2 mg/dL (0.0-0.5)
--- NOTE | 2023-01-09 23:19 | NUR ---
Transported pt to and from CT scan around 2139 till 2239.
[2023-01-10] VITALS (708 sets, daily range): BP systolic 141–168; BP diastolic 77–93; PULSE 60–82; TEMP 96.1–99.3; O2SAT 93–100
[2023-01-10 00:15] LABS: COLLECTION METHOD CATHETER
[2023-01-10 00:28] LABS: MUCOUS Present (NOT PRESENT); SQUAMOUS EPITHELIAL 0-2 /hpf (0-10); URINE BACTERIA None Seen /hpf (NONE SEEN); URINE WBC 0-2 /hpf (0-2)
[2023-01-10 00:29] LABS: URINE APPEARANCE Clear (CLEAR/HAZY); URINE BLOOD Negative (NEGATIVE); URINE COLOR Yellow (YELLOW); URINE GLUCOSE 3+ (NEGATIVE); URINE KETONE 2+ (NEGATIVE); URINE NITRATE Negative (NEGATIVE); URINE PROTEIN(semi-quant) Negative (NEGATIVE); URINE UROBILINOGEN 0.2 E.U/dL (0.2-1.0)
[2023-01-10 05:33] LABS: HEMOGLOBIN 11.4 g/dl (12.5-16.0); MEAN CELL VOLUME 95 fl (80.0-100.0); MEAN CORPUSCULAR HEMOGLOBIN 31 pg (27-31); MEAN CORPUSCULAR HGB CONC 32 g/dl (33.0-37.0); MEAN PLATELET VOLUME 9.8 fl (7.4-10.4); PLATELET COUNT 254 K/mm3 (130-400); RED BLOOD COUNT 3.73 M/mm3 (4.10-5.30); REDCELL DISTRIBUTION WIDTH-CV 15.2 % (11.5-14.5)
[2023-01-10 05:35] LABS: HEMATOCRIT 35.4 % (37.0-47.0)
[2023-01-10 05:55] LABS: ALBUMIN 2.3 gm/dL (3.5-5.0); BILIRUBIN,TOTAL 0.5 mg/dL (0.2-1.2); CALCIUM 10.3 mg/dL (8.4-10.2); MAGNESIUM 2.1 mg/dL (1.6-2.6); PHOSPHOROUS 5.7 mg/dL (2.3-4.7); TOTAL PROTEIN 7.1 gm/dL (6.2-8.1)
[2023-01-10 05:55] LABS: ANISOCYTOSIS 1+; BAND 14 % (0-10); HYPOCHROMIA 1+; LYMPHOCYTE 27 % (20.0-51.0); MYELOCYTE 1 % (0-0); NEUTROPHILS 58 % (42.0-75.2); PLATELET ESTIMATE NORMAL (NORMAL)
[2023-01-10 05:59] LABS: BILIRUBIN,DIRECT 0.3 mg/dL (0.0-0.5)
[2023-01-10 06:14] LABS: INR 1.1 (0.8-3.0); PARTIAL THROMBOPLASTIN TIME 31.8 SECONDS (26.0-37.0); PROTHROMBIN TIME 12.4 SECONDS (9.7-12.8)
[2023-01-10 07:18] LABS: ARTERIAL BLD GAS TCO2 CT 22.4; ARTERIAL BLOOD GAS BASE EXCESS -2.5 (-2-2); ARTERIAL BLOOD GAS HCO3 21.4 meq/L (22-26); ARTERIAL BLOOD GAS PCO2 34.1 mmHg (35-45); ARTERIAL BLOOD GAS PO2 102.9 mmHg (80-100); ARTERIAL BLOOD GAS pH 7.42 (7.35-7.45)
--- NOTE | 2023-01-10 08:33 | NUR ---
PT WILL NOT BE ON TRIAL FOR WEANING PARAMETERS
[2023-01-10 12:23] LABS: INR 1.1 (0.8-3.0); PROTHROMBIN TIME 12.9 SECONDS (9.7-12.8)
[2023-01-10 12:30] LABS: HEMOGLOBIN 10.5 g/dl (12.5-16.0); MEAN CELL VOLUME 95 fl (80.0-100.0); MEAN CORPUSCULAR HEMOGLOBIN 30 pg (27-31); MEAN CORPUSCULAR HGB CONC 32 g/dl (33.0-37.0); MEAN PLATELET VOLUME 9.8 fl (7.4-10.4); PLATELET COUNT 264 K/mm3 (130-400); RED BLOOD COUNT 3.47 M/mm3 (4.10-5.30); REDCELL DISTRIBUTION WIDTH-CV 15.4 % (11.5-14.5)
[2023-01-10 12:32] LABS: BILIRUBIN,TOTAL 0.5 mg/dL (0.2-1.2); CALCIUM 10.1 mg/dL (8.4-10.2); CREATININE, serum 0.89 mg/dL (0.57-1.11); MAGNESIUM 2.1 mg/dL (1.6-2.6); PHOSPHOROUS 4.9 mg/dL (2.3-4.7); POTASSIUM 3.6 mmol/L (3.5-4.5)
[2023-01-10 12:46] LABS: HEMATOCRIT 32.9 % (37.0-47.0)
[2023-01-10 13:43] LABS: COLLECTION METHOD CATHETER
[2023-01-10 13:46] LABS: PH 5.5 (5.0-8.5); URINE APPEARANCE Clear (CLEAR/HAZY); URINE BLOOD Negative (NEGATIVE); URINE COLOR Yellow (YELLOW); URINE GLUCOSE 3+ (NEGATIVE); URINE KETONE 1+ (NEGATIVE); URINE NITRATE Negative (NEGATIVE); URINE PROTEIN(semi-quant) Negative (NEGATIVE); URINE UROBILINOGEN 0.2 E.U/dL (0.2-1.0)
[2023-01-10 13:52] LABS: SQUAMOUS EPITHELIAL 0-2 /hpf (0-10); URINE BACTERIA None Seen /hpf (NONE SEEN); URINE RBC 0-2 /hpf (0-2); URINE WBC 0-2 /hpf (0-2)
[2023-01-10 14:15] LABS: ANISOCYTOSIS 1+; BAND 17 % (0-10); LYMPHOCYTE 13 % (20.0-51.0); MYELOCYTE 1 % (0-0); NEUTROPHILS 63 % (42.0-75.2); PLATELET ESTIMATE NORMAL (NORMAL)
[2023-01-10 14:16] LABS: HYPOCHROMIA 1+
--- NOTE | 2023-01-10 15:04 | NUR ---
glass processing worker met with Aramis with [facility] who is supporting family as patient will be taken for organ retrieval this date.
--- NOTE | 2023-01-10 15:39 | NUR ---
tnt powder worker Tata Hope #[phone] a message to call Buffy (social media coordinator) regarding report and open case for patient's son.
--- NOTE | 2023-01-10 17:10 | NUR ---
1419: THIS NURSE, RT, [facility] ICU DIRECTOR AND [facility] TEAM ESCORTED PT BY BED DOWN TO AMBULATORY FOR EXTUBATION AND THEN THE OR FOR ORGAN RETRIEVAL. PT WAS EXTUBATED AROUND 1437 [address]ASS[address] AROUND 1507. DR. Elmo PEARCE PRONOUNCED TIME OF AND PT WAS TAKEN TO OR FOR KIDNEY ORGAN RETRIEVAL. FAMILY WAS AT PT BEDSIDE AT TIME OF . [facility] TEAM PRESENT AT ALL TIMES.
[2023-01-10 19:53] LABS: CALCIUM, IONIZED, SERUM 1.24 mmol/L (1.19-1.41)
== END 2023-01-10 15:07 | disposition expired | DRG 100 ==
LOC: IMCU 13:22 → ICU 17:05
PROVIDERS: Internal Medicine; Internal Medicine Pulmonary Disease; ADMIT Student in an Organized Health Care Education/Training Program
PROC: 5A1955Z Respiratory Ventilation, Greater than 96 Consecutive Hours (ICD-10-PCS; principal; 2023-01-05)
PROC: 02HV33Z Insertion of Infusion Device into Superior Vena Cava, Percutaneous Approach (ICD-10-PCS; 2023-01-05)
PROC: 5A12012 Performance of Cardiac Output, Single, Manual (ICD-10-PCS; 2023-01-05)
PROC: 03HY32Z Insertion of Monitoring Device into Upper Artery, Percutaneous Approach (ICD-10-PCS; 2023-01-09)
PROC: 4A133B1 Monitoring of Arterial Pressure, Peripheral, Percutaneous Approach (ICD-10-PCS; 2023-01-09)
PROC: 4A133J1 Monitoring of Arterial Pulse, Peripheral, Percutaneous Approach (ICD-10-PCS; 2023-01-09)
DX: G40.909 Epilepsy, unspecified, not intractable, without status epilepticus (principal); E10.10 Type 1 diabetes mellitus with ketoacidosis without coma; J96.01 Acute respiratory failure with hypoxia; G93.1 Anoxic brain damage, not elsewhere classified; I67.82 Cerebral ischemia; I47.20 Ventricular tachycardia, unspecified; E87.1 Hypo-osmolality and hyponatremia; Z51.5 Encounter for palliative care; Z66 Do not resuscitate; J98.11 Atelectasis; E87.0 Hyperosmolality and hypernatremia; E87.3 Alkalosis; K50.90 Crohn's disease, unspecified, without complications; I10 Essential (primary) hypertension; E78.5 Hyperlipidemia, unspecified; M79.7 Fibromyalgia; F10.10 Alcohol abuse, uncomplicated; E66.9 Obesity, unspecified; I45.10 Unspecified right bundle-branch block; D72.829 Elevated white blood cell count, unspecified; I46.8 Cardiac arrest due to other underlying condition; E86.0 Dehydration; E86.9 Volume depletion, unspecified; K21.9 Gastro-esophageal reflux disease without esophagitis; E87.8 Other disorders of electrolyte and fluid balance, not elsewhere classified; R16.0 Hepatomegaly, not elsewhere classified; K70.9 Alcoholic liver disease, unspecified; B95.61 Methicillin susceptible Staphylococcus aureus infection as the cause of diseases classified elsewhere; E87.6 Hypokalemia; Z90.710 Acquired absence of both cervix and uterus; Z90.89 Acquired absence of other organs; Z90.49 Acquired absence of other specified parts of digestive tract; Z79.4 Long term (current) use of insulin; Z87.891 Personal history of nicotine dependence; Z68.32 Body mass index [BMI] 32.0-32.9, adult; Z23 Encounter for immunization
CPT/HCPCS: J0360; J1644; J1650; J1815; J1953; J2060; J2543; J2704; J2930; J3010; J3370; J3475; J3480; J7030; J7040; J7050; J7060; J7120; Q9967